=== PATIENT | male | born 1940 | race Caucasian/White ===

== ENCOUNTER 2022-10-22 22:41 | Inpatient (IN) | payer OTHER, MEDICARE ==
[~2022-10-22] VITALS: Ht 180.3 cm; Wt 79.3 kg
[2022-10-22 22:58] LABS: BASOPHILS ABSOLUTE AUTO 0.04 K/mm3 (0.00-0.23); BASOPHILS PERCENT AUTO 0 % (0-2); EOSINOPHILS ABSOLUTE AUTO 0.25 K/mm3 (0.00-0.68); EOSINOPHILS PERCENT AUTO 2 % (0-6); Hematocrit 45.7 % (37.0-53.0); Hemoglobin 14.7 g/dL (13.5-17.5); IMMATURE GRAN ABSOLUTE AUTO 0.06 K/mm3 (0.00-0.10); IMMATURE GRAN PERCENT AUTO 1 % (0-1); LYMPHOCYTES ABSOLUTE AUTO 1.34 K/mm3 (0.84-5.20); LYMPHOCYTES PERCENT AUTO 11 % (21-46); MONOCYTES ABSOLUTE AUTO 1.37 K/mm3 (0.16-1.47); MONOCYTES PERCENT AUTO 11 % (4-13); Mean Corpuscular HGB 30.6 pg (26.0-34.0); Mean Corpuscular HGB Conc 32.2 g/dL (31.5-36.5); Mean Corpuscular Volume 95 fL (80-100); Mean Platelet Volume 10.3 fL (9.1-12.4); NEUTROPHILS ABSOLUTE AUTO 9.68 K/mm3 (1.96-9.15); NEUTROPHILS PERCENT AUTO 76 % (41-73); Platelet Count 141 K/mm3 (150-400); RDW Coefficient Variation 13.5 % (11.7-14.2); RDW Standard Deviation 47.9 fL (35.1-46.3); White Blood Cell Count 12.74 K/mm3 (4.00-11.30)
[2022-10-22 23:15] LABS: Albumin, Blood 2.9 g/dL (3.4-5.0); Albumin/Globulin Ratio 0.8 (0.8-1.8); Bilirubin, Total 1.1 mg/dL (0.1-1.0); Bun/Creatinine Ratio 20.4 (12.0-20.0); Calcium, Blood 8.8 mg/dL (8.5-10.1); Creatinine, Blood 0.88 mg/dL (0.60-1.20); Globulin, Blood 3.7 g/dL (2.2-4.0); Potassium, Blood 4.2 mmol/L (3.5-5.5); Total Protein, Blood 6.6 g/dL (6.4-8.2)
[2022-10-23] VITALS (7 sets, daily range): BP systolic 97–150; BP diastolic 66–96
[2022-10-23 00:09] LABS: Anti-Xa UFH, PHA Monitoring <0.10 IU/mL; International Normalized Ratio 1.27; Prothrombin Time Results 13.2 Sec (9.7-11.5)
[2022-10-23 01:01] LABS: Source, Urine Clean Catch
[2022-10-23 01:06] LABS: Bilirubin, Urine Neg (Neg); Blood, Urine 5+ (Neg); Glucose Qualitative, Urine Neg (Neg); Ketones, Urine 1+ (Neg); Leukocyte Esterase, Urine 1+ (Neg); Nitrite, Urine Neg (Neg); Protein, Urine 4+ (Neg); Urobilinogen, Urine NORM (Normal); pH, Urine 6.5 (5.0-8.0)
[2022-10-23 01:07] LABS: Appearance, Urine Turbid (Clear); Color, Urine Red (P-Yellow)
[2022-10-23 01:12] LABS: Bacteria Rare /hpf; Red Blood Cells, Urine TNTC /hpf (0-2); Squamous Epithelial Cells Rare /hpf (Few)
--- NOTE | 2022-10-23 02:44 | NUR ---
ASSUMED PT CARE FORM RN IN ED. PT AGGITATED WHEN WHEELED INTO ROOM ON [facility], ATTEMPTING TO GET UP STATING "I NEED TO PEE". PT HAS CATHETER IN PLACE DRAINING BRIGHT RED URINE. PT STRANSFERD TO BED. STILL ATTEMPTING TO STAND AND VOID. EDUCATED ON CATHETER BUT PT DOES NOT SEEM TO UNDERSTAND STATING "I DON'T UNDERSTAND WHY YOU WONT LET ME PEE". BLADDER SCANNED FOR > 900 ML IN URINE. ATTEMPTED TO FLUSH BROOKE WITH MINIMAL RESULTS. BROOKE REMOVED, PT STANDING AT BEDSIDE WITH 2 ASSIST, ABLE TO VOID 200 ML BRIGHT RED URINE. PT RETURNED TO BED, NOW RESTING COMFORTABLY WITH EYES CLOSED. HEPRIN GTT STOPPED DUE TO IV SITE IN RIGHT AC, WOUND OVER UPPER LIP, AND BROOKE CATHETER BOTH OOZING BLOOD CONSTANTLY. DR. DOMINGUEZ INFORMED AND ROUNDING ON PT. RECEIVED ORDERS TO DC HEPRIN GTT AT THIS TIME. ALSO RECEIVED ORDER FOR MAG RIDER DUE TO PT HAVING FREQUENT PVC'S, MAG RIDER INFUSING AT THIS TIME. BLEEDING FROM LIP AND IV SIGNIFICANTLY SLOWED SINCE HEPRIN GTT STOPPED, WILL MONITOR. PT ORIENTED TO SELF AND LOCATION, [place]. PLEASANT AND COOPERATIVE AFTER BEING ABLE TO VOID. FOLLOWS DIRECTIONS WITH DIFFICULTY DUE TO DECREASED HEARING AND WEAKNESS NOTED IN BOTH LEFT ARM AND LEFT LEG. CALL LIGHT IN REACH. BED ALARM ON.
[2022-10-23 04:02] LABS: BASOPHILS ABSOLUTE AUTO 0.04 K/mm3 (0.00-0.23); BASOPHILS PERCENT AUTO 0 % (0-2); EOSINOPHILS PERCENT AUTO 1 % (0-6); Hematocrit 42.9 % (37.0-53.0); IMMATURE GRAN ABSOLUTE AUTO 0.06 K/mm3 (0.00-0.10); IMMATURE GRAN PERCENT AUTO 1 % (0-1); LYMPHOCYTES ABSOLUTE AUTO 1.11 K/mm3 (0.84-5.20); LYMPHOCYTES PERCENT AUTO 9 % (21-46); MONOCYTES ABSOLUTE AUTO 1.13 K/mm3 (0.16-1.47); MONOCYTES PERCENT AUTO 9 % (4-13); Mean Corpuscular HGB 30.7 pg (26.0-34.0); Mean Corpuscular HGB Conc 32.6 g/dL (31.5-36.5); Mean Corpuscular Volume 94 fL (80-100); Mean Platelet Volume 10.4 fL (9.1-12.4); NEUTROPHILS ABSOLUTE AUTO 9.88 K/mm3 (1.96-9.15); NEUTROPHILS PERCENT AUTO 80 % (41-73); Platelet Count 133 K/mm3 (150-400); RDW Coefficient Variation 13.4 % (11.7-14.2); RDW Standard Deviation 46.9 fL (35.1-46.3); Red Blood Cell Count 4.56 M/mm3 (4.30-5.90); White Blood Cell Count 12.32 K/mm3 (4.00-11.30)
[2022-10-23 04:18] LABS: Albumin, Blood 2.8 g/dL (3.4-5.0); Albumin/Globulin Ratio 0.8 (0.8-1.8); Bilirubin, Total 1.3 mg/dL (0.1-1.0); Bun/Creatinine Ratio 20.1 (12.0-20.0); Calcium, Blood 8.3 mg/dL (8.5-10.1); Creatinine, Blood 0.7 mg/dL (0.60-1.20); Globulin, Blood 3.3 g/dL (2.2-4.0); Magnesium, Blood 2.7 mg/dL (1.6-2.4); Potassium, Blood 3.6 mmol/L (3.5-5.5); Total Protein, Blood 6.1 g/dL (6.4-8.2)
--- NOTE | 2022-10-23 05:45 | NUR ---
PT BLEEDING FROM WOUND AND IV SITE HAS SLOWED BUT NOT STOPPED. CONTINUES TO VOID BRIGHT RED BLOOD BUT IS ABLE TO VOID IN URINAL, DOES NOT APPEAR UNCOMFORTABLE BEFORE. WILL CONTINUE TO MONITOR. ABLE TO TAKE PO MEDS WITH SMALL SIPS OF WATER WITHOUT ANY COUGHING OR CHOAKING. CLEARS THIN LIQUIDS WELL. HR REMAINS SR WITH MULTIPLE PVC'S AND FREQUENT RUNS OF V-TACH. DR. DOMINGUEZ IS AWARE.
--- NOTE | 2022-10-23 09:40 | NUR ---
AM NOTE: THIS RN ASSUMED CARE FROM LIVIA RN. PATIENT TRYING TO GET OUT OF BED DURING BEDSIDE SHIFT REPORT AND AGGITATED WITH LINES AND CORDS. PATIENT ABLE TO TELL ME NAME, , YEAR, WHERE HE IS AND WHY HE IS HERE. INTERMIT CONFUSION AND AT TIMES PATIENT TAKING LONGER TO RESPOND. SPEECH CLEAR. SLIGHTLY HARD OF HEARING. LEFT CHEEK/LIP LACERATION WITH STICHES IN PLACE, MAKING IT VERY DIFFICULT TO TELL IF PATIENT IS HAVING LEFT SIDED FACIAL DROOP. PATIENT ABLE TO STICK OUT TONGUE, MOVE IT FROM SIDE TO SIDE, RAISE EYEBROWS AND PUFF OUT BOTH CHEEKS WITH NO ISSUES. PUPILS ARE EQUAL AND SLUGGISH TO REACT. MISSING TEETH, ONE TOOTH ON BOTTOM IS SLIGHTLY LOOSE. PATIENT FOLLOWING COMMANDS WITH RIGHT UPPER AND LOWER EXTREMITY. AT TIMES MOVING LEFT UPPER AND LOWER LEG BUT NOT FOLLOWING COMMANDS ON LEFT SIDE. UNABLE TO SQUEEZE LEFT HAND. UNABLE TO SENSE THIS RN TOUCHING LEFT ARM/LEG. SENSATION PRESENT THROUGHOUT ENTIRE FACE. PATIENT NEGLECTING TO LOOK TO THE LEFT. NOT RECOGNIZING THIS RN'S HANDS OR FINGERS WHEN ASKED "HOW MANY" ON THE LEFT SIDE. ON ROOM AIR, LUNGS SOUNDING CLEAR. EVEN AND UNLABORDED BREATHS. NO COUGH OR SOB NOTED. PATIENT ABLE TO COUGH ON COMMAND. RR 16-20. TELE SHOWING SR WITH MULTIPLE AND FREQUENT PVC'S. HR 80-90'S. DENIES CHEST PAIN/PRESSURE/PALPITATIONS. BP STABLE. NO SIGNS OF EDEMA. BLEEDING NOTED AROUND BOTH IV SITES AND FROM URETHRA. CARDIOLOGY CONSULT CANCELED PER DR. LEE. ECHO ORDERS IN PLACE. DENIES ABDOMINAL PAIN/NAUSEA. NPO AT THIS TIME. NO TENDERNESS WITH PALPATION. ATTENDS IN PLACE. PATIENT URINATING SMALL/FREQUENT AMOUNTS OF BRIGHT RED BLOOD. PATIENT DENIES PAIN WHEN URINATING. PATIENT STATES HE DOES NOT NORMALLY PEE ANY BLOOD. IN ADDITION TO LEFT CHEEK/LIP LACERATION WITH STICHES, PATIENT HAS HEMATOMA AND ABRASION TO LEFT FOREHEAD. THIS RN SPOKE WITH DR. LEE ON PHONE THIS MORNING REGARDING NEURO CONCERNS, BLEEDING WHEN URINATING AND PATIENT PRESENTATION DESCRIBED IN THIS NOTE. DR. LEE TO PLACE LAB ORDERS. PLAN TO DC CARDIOLOGY. DR. LEE MED STUDENTS TO BEDSIDE TO EVAL PATIENT.
[2022-10-23 11:12] LABS: Hematocrit 44.2 % (37.0-53.0); Hemoglobin 14.4 g/dL (13.5-17.5)
--- NOTE | 2022-10-23 11:13 | NUR ---
THIS RN PLACED CALL TO DR. LEE. THIS RN CONCERNED WITH PATIENT HAVING TROUBLE URINATING AND WHEN HE DOES URINATE IT BEING BRIGHT RED BAKARI BLOOD AND ONLY 50-100ML AT A TIME. THIS RN DISCUSSED/ ASKED QUESTIONS OF NEED FOR POSSIBLE BROOKE OR CONTINUOUS BLADDER IRRIGATION. ORDERS FOR RENAL ULTRASOUND. THIS RN ALSO DISCUSSED/QUESTIONED MRI BEING DONE TODAY WITH CONCERNS FOR LEFT SIDE NEGLECT. PLAN FOR MRI TO BE DONE TOMORROW AT THIS TIME. PATIENT UNABLE TO COMPLETE ECHO TO NOT BEING ABLE TO LAY STILL. SPEECH THERAPY ORDERS PLACED. CAMERA AND BED ALARM REMAIN IN PLACE. DR. LEE WANTING MRI DONE TOMORROW 10/24.
--- NOTE | 2022-10-23 12:40 | NUR ---
PATIENT TRYING TO GET OUT OF BED. THIS RN AND SECOND RN TO BEDSIDE TO ASSIST PATIENT. PATIENT ASKS RN IF SHE IS A DOCTOR AND STATES HE WANTS US TO KNOW THE WHOLE STORY. PATIENT STATES "I HAD A STROKE A WEEK AGO". HE DESCRIBES WORKING ON HIS ROOF AND FEELING HIS LEFT SIDE BECOME PARALIZED AND STRUGGLING TO USE HIS RIGHT SIDE. HE STATES HE DID NOT TELL ANYONE OR GO TO SEE A DOCTOR. HE STATES HIS SPEECH WAS NOT AFFECTED. FAMILY TO BEDSIDE AND THIS RN UPDATED ON PLAN OF CARE AND PATIENT CONDITION. RENAL ULTRASOUND BEING DONE AT THIS TIME. AFTERNOON VITALS STABLE. NO CHANGES TO NEURO ASSESSMENT SEE PRIOR NOTE. PATIENT CONTINUES TO NEGELECT LOOKING LEFT OR USING LEFT SIDE WHEN ASKED TO COMPLETE COMMANDS. PATIENT ABLE TO STAND AT BEDSIDE WITH THIS RN AND LIVING ADVISOR AND URINATE 150 OF BAKARI RED BLOOD. PATIENT USES LEFT HAND TO PUSH OFF BED BUT NOT ABLE TO SQUEEZE THIS RN'S OR COMPLETE ANY OTHER COMMANDS. CONTINUES TO DENY PAIN THROUGHOUT. ASKING FOR WATER. SPEECH THERAPY ORDERS IN PLACE. USING SUCTION SWABS TO MOISTEN MOUTH. Q4 ORAL CARE. Q6 CBG.
--- NOTE | 2022-10-23 15:03 | NUR ---
DR. LEE BY TO SEE PATIENT. ORDERS FOR MRI. THIS RN PRESENT FOR DR. LEE ASSESSMENT. PATIENT PRESENTS WITH SAME SYMPTOMS MENTIONED IN PRIOR NOTES WITH THE ADDITION OF A RIGHT HAND "PILL ROLLING" TREMOR, PER DR. LEE. PLAN TO CONTINUE TO MONITOR URINE OUTPUT, NO INTERVENTIONS AT THIS TIME.
--- NOTE | 2022-10-23 16:56 | NUR ---
PATIENT MUCH MORE AGGITATED, PULLING AT LINES AND CORDS. TRYING TO GET OUT OF BED. CONFUSED AND SAYING HE IS AT HOME. NONSENSICAL STATEMENTS. MOVING LEFT LEG KICKING IN BED. CONTINUES TO HAVE LEFT SIDED FACIAL DROOP. AND NOT ABLE TO FOLLOW COMMANDS ON LEFT SIDE SUCH SQUEEZING MY HAND OR LOOKING TO THE LEFT. DR. LEE NOTIFIED AND IN TO SEE PATIENT. SEE EMAR FOR PRN MEDICATIONS. SEROQUEL GIVEN WITH NO ISSUES. PLAN FOR 5MG PO VALIUM 15 MIN PRIOR TO MRI. CALL PLACED TO KRYS TO UPDATE. NO ANSWER. CALL PLACED TO SON AMAYA. UPDATE GIVEN.
--- NOTE | 2022-10-23 17:13 | NUR ---
25 MG OF PO SEROQUEL GIVEN PER DR. LEE. ORDERS TO GIVE ADDITIONAL 25MG IN 30 MIN IF PATIENT IS STILL AGGITATED. PATIENT SITTING UP IN BED AND SLIGHTLY MORE COMFORTABLE. MARSHMALLOW MAKER OR THIS RN HAVING TO STAY AT BEDSIDE.
--- NOTE | 2022-10-23 18:10 | NUR ---
MRI ON WAY TO FROZEN PIE MAKER PATIENT. PATIENT RESTING SOUNDLY AT THIS TIME. 1:1 SITTER IN ROOM.
--- NOTE | 2022-10-23 20:05 | NUR ---
ASSUMED PT CARE FROM DENISE RN ON . PT RESTING IN BED WITH EYES CLOSED. APPEARS TO BE SLEEPING BUT RESPONDS TO TOUCH BY PUSHING HANDS AWAY AND RESISTING INTERACTION, ABLE TO CONSOLE SLIGHTLY WITH VOISE. RESPIRATIONS EVEN AND UNLABORED WITH O2 SATS 97% ON RA. IV ATIVAN GIVEN PRIOR TO PT LEAVING FOR SECOND ATTEMPT AT MRI, FIRST ATTEMPT UNSUCCESSFUL DUE TO PT BECOMING AGGITATED. PT OFF FLOOR AT THIS TIME.
[2022-10-24] VITALS (7 sets, daily range): BP systolic 116–145; BP diastolic 48–91
--- NOTE | 2022-10-24 06:09 | NUR ---
SHIFT SUMMARY: PT WAS ABLE TO HAVE MRI COMPLETED, RESULTS PENDING STILL. PT HAS SLEPT THROUGHOUT THIS SHIFT. RESPONDS TO TOUCH BY PUSHING HANDS AWAY BUT IS NOT RESPONSIVE TO VERBAL STIMULI AT THIS TIME. RESPIRATIONS HAVE REMAINED EVEN AND UNLABORED. O2 SATS 97% ON RA. HR SR WITH PVC'S. FREQUENCY OF PVC'S DECREASED THROUGHOUT SHIFT. NO V-TACH NOTED DURING THIS SHIFT. NO ATTEMPTS TO GET OUT OF BED DURING THIS SHIFT. PT HAD EXTRA LARGE INCOTINENT VOID THAT APPEARD TO BE CLEAR YELLOW IN HIS BRIEF, NO BLOOD NOTED. CALL LIGHT IN REACH. CAMERA IN ROOM FOR PT SAFETLY.
--- NOTE | 2022-10-24 10:03 | NUR ---
AM NOTE: PATIENT VERY LETHERGIC, DROWSY AND HARD TO WAKE. WAKES TO PAINFUL STIMULI AND OCCASIONALLY VERBAL. OPENING EYES UPON TURNING IN BED AND STATES HIS SHOULDER HURTS. ABLE TO TELL ME NAME AND . STATES HE IS IN [place] AT HOME. LEFT FACIAL DROOP AND SPEECH MUMBLED. AT TIMES PATIENT HAVING HARD TIMES CLEARING SECRETIONS. SUCTION AT BEDSIDE. ABLE TO COUGH ON DEMAND. PUPILS EQUAL AND SLUGGISH TO REACT. LEFT SIDE REMAINS IMPAIRED. LEFT UPPER AND LOWER EXTREMITY MORE FLACCID AND LESS MOVEMENT THIS AM COMPARED TO YESTERDAY DAY SHIFT. COMPLAINS OF "RIGHT SHOULDER PAIN" BUT POINTS TO LEFT SHOUDLER WITH RIGHT HAND. NOT ABLE TO STAY AWAKE LONG ENOUGH TO PARTICIPATE IN OTHER COMPONENTS OF NEURO ASSESSMENT. TELE SHOWING SR WITH HR 70-80'S WITH LESS FREQUENT PVC'S COMPARED TO YESTERDAY DAY SHIFT. BP STABLE. PPP. NO SIGNS OF EDEMA. ON ROOM AIR SATING MID-HIGH 90'S. LUNGS SOUNDING CLEAR IN UPPER LOBES AND DIMINISHED IN LOWER LOBES. PATIENT IS HAVING THICK/BROWN/YELLOW/FOWL SMELLING SPUTUM. SUCTIONING FREQUENTLY THIS AM. WET/HARSH/MOIST SOUNDING COUGH. BOWEL TONES PRESENT. REMAINS NPO AT THIS TIME. SPEECH THERAPY CONSULT IN PLACE. Q4 ORAL CARE AND NEEDED. Q6 BLOOD SUGARS. BLOOD SUGAR THIS AM 88. SON, DAUGHTER AND MOM IN THIS AM. UPDATED BY THIS RN. DR. LEE MED STUDENTS IN TO ASSESS PATIENT.
--- NOTE | 2022-10-24 10:44 | NUR ---
UPON Q2 TURNING PATIENT OPENS EYES. THIS RN ASKED IF PATIENT IS IN ANY PAIN, PATIENT STATES NO. THIS RN ASKED IF PATIENT WAS COMFORTABLE AND PATIENT STATES YES. PATIENT FALLS ASLEEP QUICKLY AFTER WAKING.
--- NOTE | 2022-10-24 11:00 | NUR ---
DR. LEE BY. PLAN TO PLACE PATIENT ON D5 1/2 NS AT 75 ML/HR. ORDER FOR CBC AND CHEM PANEL TO BE DRAWN NOW, CTA OF HEAD AND NECK TO BE DONE, BLADDER SCAN PRN, SPUTUM SAMPLE, 1MG IV ATIVAN Q4 PRN FOR AGITATION. ORDERS IN PLACE.
[2022-10-24 11:32] LABS: BASOPHILS ABSOLUTE AUTO 0.04 K/mm3 (0.00-0.23); BASOPHILS PERCENT AUTO 0 % (0-2); EOSINOPHILS ABSOLUTE AUTO 0.13 K/mm3 (0.00-0.68); EOSINOPHILS PERCENT AUTO 1 % (0-6); Hematocrit 42.7 % (37.0-53.0); Hemoglobin 13.9 g/dL (13.5-17.5); IMMATURE GRAN ABSOLUTE AUTO 0.08 K/mm3 (0.00-0.10); IMMATURE GRAN PERCENT AUTO 1 % (0-1); LYMPHOCYTES PERCENT AUTO 7 % (21-46); MONOCYTES ABSOLUTE AUTO 1.38 K/mm3 (0.16-1.47); MONOCYTES PERCENT AUTO 9 % (4-13); Mean Corpuscular HGB 30.5 pg (26.0-34.0); Mean Corpuscular HGB Conc 32.6 g/dL (31.5-36.5); Mean Corpuscular Volume 94 fL (80-100); Mean Platelet Volume 10.4 fL (9.1-12.4); NEUTROPHILS ABSOLUTE AUTO 12.11 K/mm3 (1.96-9.15); NEUTROPHILS PERCENT AUTO 82 % (41-73); Platelet Count 150 K/mm3 (150-400); RDW Coefficient Variation 13.6 % (11.7-14.2); RDW Standard Deviation 47.4 fL (35.1-46.3); Red Blood Cell Count 4.55 M/mm3 (4.30-5.90); White Blood Cell Count 14.74 K/mm3 (4.00-11.30)
[2022-10-24 11:56] LABS: Albumin, Blood 2.6 g/dL (3.4-5.0); Albumin/Globulin Ratio 0.8 (0.8-1.8); Bilirubin, Total 1.6 mg/dL (0.1-1.0); Bun/Creatinine Ratio 29.1 (12.0-20.0); Calcium, Blood 8.3 mg/dL (8.5-10.1); Creatinine, Blood 0.69 mg/dL (0.60-1.20); Globulin, Blood 3.4 g/dL (2.2-4.0)
--- NOTE | 2022-10-24 12:50 | NUR ---
PATIENT BACK FROM CTA OF HEAD AND NECK
--- NOTE | 2022-10-24 14:39 | NUR ---
SON (AMAYA) DAUGHTER (EM) AND (KRYS) AT BEDSIDE VISITING. THIS RN PROVIDED UPDATE TO FAMILY. DR. LEE TO SPEAK WITH FAMILY ON DETAILS. THIS RN OFFERED SUPPORT WITH THERAPUETIC LISTENING. THIS RN ENCOURAGED FAMILY TO CONSIDER GOALS OF CARE FOR THEIR FATHER/. FAMILY IS OPEN TO CONTINUED CONVERSATIONS.
--- NOTE | 2022-10-24 18:06 | NUR ---
SHIFT SUMMARY: NO ACUTE CHANGES. VITAL SIGNS REMAIN STABLE. ELEVATED TEMP AROUND 99.6. TMAX THIS SHIFT 100.3. SHEET AND FAN PLACED ON PATIENT FOR COMFORT. PATIENT REMAINS CALM AND COOPERATIVE THROUGHOUT SHIFT. SEE AM NOTE FOR INFORMATION ABOUT PRESENTATION. PATIENT OCCASSIONALLY OPENS EYES AND ABLE TO COMMUNICATE NEEDS WHEN ASKED CLEAR YES AND NO QUESTIONS. ABLE TO SHAKE HIS HEAD YES AND NO. LEFT FACIAL DROOP AND LIMITED ROM ON LEFT SIDE. Q2 TURNING. Q4 ORAL CARE. Q6 BLOOD SUGARS. D5 1/2 NS INFUSING PER EMAR. ABX GIVEN. NO TELE EVENTS. REMAIN SR WITH PVC'S. REMAINS ON ROOM AIR. SPUTUM SAMPLE SENT TO LAB. CONTINUES TO HAVE HARSH WET COUGH. SUCTIONING NEEDED, SUCTIONING HAS SLOWED SINCE THIS AM. SPUTUM REMAINS FOWL SMELLING. URINE REMAINS BLOODY. PATIENT CONTINUES TO DENY PAIN WHEN URINATING. INCONTINENT IN ATTENDS. BLADDER SCANNING FREQUENTLY. NO GREATER THAN 286 IN BLADDER THIS SHIFT. SMALL BLOOD CLOTS NOTED IN ATTENDS. DR. LEE BACK ON FLOOR, THIS RN UPDATED ON CONVERSATION I HAD WITH PATIENTS FAMILY ABOUT STROKE AND PATIENT PRESENTATION. DR. LEE PLANS FOR CONVERSATION TOMORROW WITH FAMILY. CAMERA IN PLACE WELL BED ALARM. PATIENT HAS HAD 0 ATTEMPTS AT TRYING TO GET OUT OF BED THIS SHIFT.
--- NOTE | 2022-10-24 19:53 | NUR ---
ASSSUMED PT CARE FROM DENISE HERNANDEZ ON . PT RESTING IN BED WITH EYES CLOSED. OPENS EYES SLIGHTLY WHEN GREETED VERBALLY, RESPONDS TO QUESTIONS BUT IS [place]. A&OX2, PLEASANT AND COOPERATIVE AT THIS TIME. CHANGED DUE TO INCONTINENT VOID OR BLOOD TINGED URINE. BLADDER SCANNED FOR 332 ML, DENIES FEELING THE NEED TO VOID AT THIS TIME, WILL MONITOR. DENIES ANY DISCOMFORT AT THIS TIME. HR IS SR WITH PVC'S IN THE 90'S. O2 SATS 97% ON RA. PT HAS LOOSE COUGH, EXPELLS THICK, YELLOW SPUTUM WHEN ENCOURAGED. LUNG SOUNDS COURSE THROUGHOUT, WILL MONITOR. LEFT SIDE NOTED TO BE VERY WHEAK, UNABLE TO SQUEEZE WITH LEFT HAND, AND ONLY MINIMAL MOVEMENT NOTED WITH LEFT FOOT. LEFT FACIAL DROOP NOTED AT WELL. WILL MONITOR. CALL LIGHT IN REACH, BED ALARM ON. NISHA IN ROOM FOR PT SAFETY.
--- NOTE | 2022-10-24 23:37 | NUR ---
INCREASED PVC'S NOTED THIS EVENING. DR. EUGENE CALLED, RECEIVED ORDERS FOR RETESTING ELECTROLYTES. WILL MONITOR. PT APPEARS ASYMPTOMATIC AT THIS TIME BUT DIFFICULT TO ASSESS DUE TO DECREASED MENTATION. WILL MONITOR. DOES NOT APPEAR IN ANY DISTRESS. CALL LIGHT IN REACH. BED ALARM ON. NISHA IN ROOM FOR SAFETY.
[2022-10-24 23:44] LABS: Phosphorus, Blood 2.7 mg/dL (2.5-4.9); Potassium, Blood 4.1 mmol/L (3.5-5.5)
[2022-10-25] VITALS (7 sets, daily range): BP systolic 113–148; BP diastolic 68–98
--- NOTE | 2022-10-25 05:37 | NUR ---
PT CONTINUES TO BE DROWSY THROUGHOUT THE NIGHT BUT WAKES TO NOISE. DOES NOT FOLLOW DIRECTIONS WELL. ABLE TO COMMUNICATE SIMPLE NEEDS. FREQUENT INCONTINENT VOIDS WITH BLOOD TINGED URINE. BLADDER SCANNED Q 3-4 HOURS, RESULTS UNDER BLADDER MANAGMEENT. REPOSITIONED OFF OF BACK FREQUENTLY, PT RESISTANT TO BE MOVED. HR REMAINS SR WITH PVC'S. O2 SATS > 92% ON RA. CALL LIGHT IN REACH. BED ALARM ON. CAMERON IN ROOM FOR SAFETY.
--- NOTE | 2022-10-25 17:19 | NUR ---
HIFT SUMMARY PT IS A&OX4 BUT HAS BEEN DROWSY THIS SHIFT. HE WORKED WITH PT/OT/ST THIS AM. HE IS NOW ON A PUREE DIET, W/ NECTAR THICK LIQUIDS, AND NEEDS ASSISTANCE TO EAT. THE PT C/O LEFT SHOULDER PAIN WHEN ROLLED ONTO THAT SIDE A 2V XR WAS ORDERED FOR BOTH SHOULDERS, NO FRACTURES NOTED. FAMILY HAS BEEN AT BEDSIDE FOR HALF OF THE SHIFT AND THEY WERE UPDATED ON THE PT'S STATUS. HE IS ON ROOM AIR AND HAS NO COMPLAINTS OF SOB. HE DOES PRODUCE COPIOUS AMOUNTS OF THICK SPUTUM, AND IS ABLE TO COUGH IT UP. ON TELE HE IS ON SR W/ PVC'S AND PAC'S, HR 60'S -100'S; HE DENIES ANGINA. PT HAS BEEN INC AND A Q2 TURN. BED IS IN LOW, CALL LIGHT IN REACH, AND VIRTUAL DATA CENTER ENGINEER IN THE ROOM. SEE NOTES FOR ANY UPDATES.
--- NOTE | 2022-10-25 17:20 | NUR ---
DR. ESPAÑA WANTS TO HAVE A FAMILY MEETING W/ PALLITIVE CARE TOMORROW. HE CALLED FAMILY BUT WAS UNABLE TO REACH THEM.
--- NOTE | 2022-10-25 17:41 | NUR ---
TALKED TO PALLIATIVE CARE PT EXPRESSED HE DOES NOT WANT TO HAVE HIS DAUGHTER EM IN THE FAMILY MEETING TOMORROW W/ THE DR AND PALLIATIVE. PT STATED HE DOES WANT HIS DAUGHTER TO "FRAK OUT". HE FOR SURE WANTS HIS AND SON. PALLIATIVE NOTIFIED OF REQUEST AND TOLD THAT WE WERE NOT ABLE TO REACH FAMILY YET. KOKO FROM PALLIATIVE STATED SHE WILL REACH OUT TO FAMILY.
--- NOTE | 2022-10-25 17:52 | NUR ---
Meeting set for 10am tomorrow, 10/26 with pt's family, Dr. Portillo and palliative care.
--- NOTE | 2022-10-25 19:55 | NUR ---
ASSUMED PT CARE FROM BATSHEVA HERNANDEZ ON DAY . PT IS A&OX4, ABLE TO ANSWERS DIRECT QUESTIONS APPROPRIATELY. FOLLOWS COMMANDS WITH DIFFICULTY, STRUGGLES WITH MAKING NEEDS KNOWN. DENIES ANY PAIN, SOB, OR NAUSEA AT THIS TIME. HR IS SR WITH PVC'S IN THE 90'S. BP STABLE. O2 SATS 96% ON RA. ABLE TO COUGH AND CLEAR AIRWAY WHEN DIRECTED TO. DOES NOT APPEAR IN ANY DISTRESS. PT TURNS HEAD TO LEFT WITH DIFFICULTY, UNABLE TO TELL ME WHAT HE SEE OUT OF HIS LEFT EYE. LEFT ARM FLACCID, UNABLE TO FEEL TOUCH. UNABLE TO FEEL TOUCH IN LEFT LEG UP UNTIL THIGH AREA BUT INVOLUNTARY MOVEMENT PRESENT WHEN FOOT IS TOUCHED, KICKING OUT AND JERKING. DENIES NEEDS AT THIS TIME. CALL LIGHT IN REACH. BED ALARM ON.
[2022-10-26 00:40] VITALS: BP 126/85
[2022-10-26 04:01] LABS: BASOPHILS ABSOLUTE AUTO 0.03 K/mm3 (0.00-0.23); BASOPHILS PERCENT AUTO 0 % (0-2); EOSINOPHILS ABSOLUTE AUTO 0.18 K/mm3 (0.00-0.68); EOSINOPHILS PERCENT AUTO 1 % (0-6); Hematocrit 42.2 % (37.0-53.0); Hemoglobin 13.9 g/dL (13.5-17.5); IMMATURE GRAN ABSOLUTE AUTO 0.06 K/mm3 (0.00-0.10); IMMATURE GRAN PERCENT AUTO 1 % (0-1); LYMPHOCYTES PERCENT AUTO 10 % (21-46); MONOCYTES ABSOLUTE AUTO 1.25 K/mm3 (0.16-1.47); MONOCYTES PERCENT AUTO 10 % (4-13); Mean Corpuscular HGB 30.3 pg (26.0-34.0); Mean Corpuscular HGB Conc 32.9 g/dL (31.5-36.5); Mean Corpuscular Volume 92 fL (80-100); Mean Platelet Volume 10.2 fL (9.1-12.4); NEUTROPHILS ABSOLUTE AUTO 9.73 K/mm3 (1.96-9.15); NEUTROPHILS PERCENT AUTO 78 % (41-73); Platelet Count 138 K/mm3 (150-400); RDW Coefficient Variation 13.3 % (11.7-14.2); RDW Standard Deviation 45.4 fL (35.1-46.3); Red Blood Cell Count 4.59 M/mm3 (4.30-5.90); White Blood Cell Count 12.45 K/mm3 (4.00-11.30)
[2022-10-26 04:18] VITALS: BP 119/58
[2022-10-26 04:21] LABS: International Normalized Ratio 1.41; Prothrombin Time Results 14.5 Sec (9.7-11.5)
[2022-10-26 04:23] LABS: Albumin, Blood 2.4 g/dL (3.4-5.0); Albumin/Globulin Ratio 0.7 (0.8-1.8); Bilirubin, Total 1.8 mg/dL (0.1-1.0); Bun/Creatinine Ratio 26.5 (12.0-20.0); Calcium, Blood 8.2 mg/dL (8.5-10.1); Creatinine, Blood 0.79 mg/dL (0.60-1.20); Globulin, Blood 3.4 g/dL (2.2-4.0); Magnesium, Blood 2.2 mg/dL (1.6-2.4); Phosphorus, Blood 2.8 mg/dL (2.5-4.9); Potassium, Blood 3.9 mmol/L (3.5-5.5); Total Protein, Blood 5.8 g/dL (6.4-8.2)
--- NOTE | 2022-10-26 06:51 | NUR ---
SHIFT SUMMARY: PT SLEPT MAJORITY OF NIGHT. OCCASIONALLY UP TO BSC TO VOID. DENIES ANY SOB OR CHEST PAIN. DENIES PAIN IN LEFT LEG. HR REMAINS A-FIB 90'S-100'S WHEN AT REST. INTO THE 110-120'S WEHN UP. NO ACUTE CHANGES NOTED DURING THIS SHIFT. CALL LIGHT IN REACH. BED ALARM ON.
[2022-10-26 07:32] VITALS: BP 136/85
--- NOTE | 2022-10-26 11:29 | NUR ---
Met with Dr. Portillo and pt's son Ashish this morning in pt's room, while the pt appeared to be sleeping. Dr. Portillo and son discussed options, and at this point, given the extensive issues, Ashish states he prefers to take the pt home with hospice to give him some quality time with the time he has left. Afterwards, Ashish and I discussed logistics, and Ashish is planning to take both his mom and dad home to his house, as mom is legally blind, and the pt has been her primary CG until recently when he became incapacitated. Ashish does not have a preference for hospice agency, so passed the information to JANE Grey. Pt is now on comfort care, pending home with hospice.
--- NOTE | 2022-10-26 14:55 | NUR ---
Received pt to medical unit. Verbally aroused, falls right back to sleep. Able to make needs known. Denies pain. Resp even nonlabored on RA. Daily hygiene and oral care provided. Pt states uncomfortable on left side. Repositioned for comfort. No family at bedside. Will continue to monitor.
--- NOTE | 2022-10-26 18:47 | NUR ---
SHIFT SUMMARY: Pt remains calm, aroused to verbal stimuli. Slow to respond, able to verbalized needs. No pain upon assessment, denies when asked. Sitting up in bed being fed pureed diet without difficulty. Good appetite. Voided X1 per brief dark yellow in color. No further needs id or verbalized at this time.
[2022-10-27 03:10] LABS: HSV-1 DNA Negative (Negative); HSV-2 DNA Negative (Negative)
--- NOTE | 2022-10-27 04:59 | NUR ---
SUMMARY: PT REMAINS ON COMFORT CARE BUT DENIES COMPLAINTS OR NEED FOR PAIN/PRN MEDS. HE'S A/O TO SELF, FAMILY AND SURROUNDINGS AND SPECIFIES NEEDS WHEN STAFF IN ROOM. BED ALARM ON FOR FALL RISK AND DECONDITIONING. R.EXT'S STRENGTH AND MOBILITY IS INTACT AND HE CAN GRADULLAY REPOSITION SELF BUT TURN SCHEDULE WAS MAINTAINED D/T L.ARM FLACCIDITY AND L.LEG WEAKNESS. PILLOWS PLACED FOR SBD PREVENTION AND ATTENDS CHANGED PRN FOR URINARY INCONTINENCE. HE HAD FALL PRIOR TO ADMISSION AND HAS SCATTERED BRUISES, L.UPPER LIP STITCHES, L.SCALP LAC W/SCABBING AND L.ELBOW MEPILEX THAT REMAINS C/D/I. NO ACUTE CHANGES. PLAN FOR D/C TODAY HOME W/HOSPICE. WCLUISANA AND REPORT TO DAY RN.
[2022-10-27 07:35] VITALS: BP 143/90
--- NOTE | 2022-10-27 11:23 | NUR ---
DISCHARGE HOME PT DISCHARGED VIA [facility] TO HOME WITH HOSPICE. PT CLEAN AND DRY. IV X2 REMOVED. BELONGINGS INCLUDING GLASSES SENT WITH EMS CREW. TRANSFERED TO [facility] WITH 4 ASSIST AND SLIDER SHEET. PT TOLERATED WELL. CONTINUE POC.
== END 2022-10-27 11:25 | disposition hospice, home (50) | DRG 64 ==
LOC: ER 22:41 → MEDS 10-23 01:18 → PCU 10-23 01:18 → MEDS 10-26 13:21 → ENPENDDIS 10-27 10:12 → MEDS 10-27 11:25
PROVIDERS: Emergency Medicine; Family Medicine; Internal Medicine; ADMIT Student in an Organized Health Care Education/Training Program
PROC: 0T9B70Z Drainage of Bladder with Drainage Device, Via Natural or Artificial Opening (ICD-10-PCS; principal; 2022-10-23)
PROC: 0CQ0XZZ Repair Upper Lip, External Approach (ICD-10-PCS; 2022-10-23)
DX: I63.511 Cerebral infarction due to unspecified occlusion or stenosis of right middle cerebral artery (principal); I21.A1 Myocardial infarction type 2; G81.94 Hemiplegia, unspecified affecting left nondominant side; G93.40 Encephalopathy, unspecified; I50.20 Unspecified systolic (congestive) heart failure; I49.3 Ventricular premature depolarization; Z51.5 Encounter for palliative care; S01.511A Laceration without foreign body of lip, initial encounter; R77.8 Other specified abnormalities of plasma proteins; N32.89 Other specified disorders of bladder; R16.0 Hepatomegaly, not elsewhere classified; N40.0 Benign prostatic hyperplasia without lower urinary tract symptoms; M06.869 Other specified rheumatoid arthritis, unspecified knee; E16.2 Hypoglycemia, unspecified; K76.89 Other specified diseases of liver; R91.1 Solitary pulmonary nodule; I73.9 Peripheral vascular disease, unspecified; D69.6 Thrombocytopenia, unspecified; E55.9 Vitamin D deficiency, unspecified; N32.0 Bladder-neck obstruction; L21.9 Seborrheic dermatitis, unspecified; C44.92 Squamous cell carcinoma of skin, unspecified; C44.91 Basal cell carcinoma of skin, unspecified; W01.198A Fall on same level from slipping, tripping and stumbling with subsequent striking against other object, initial encounter; Y92.009 Unspecified place in unspecified non-institutional (private) residence as the place of occurrence of the external cause
CPT/HCPCS: 12013; 36415; 51702; 51798; 70450; 70496; 70498; 72125; 73030; 76770; 80053; 81001; 82105; 82330; 82947; 83735; 84100; 84132; 84484; 85014; 85018; 85025; 85520; 85610; 87040; 87070; 87077; 87186; 87205; 87529; 92610; 93005; 93010; 93306; 96361-59; 96365-59; 97112; 97162; 97166; 97530; 99285-25; A9270; C9113; G0103; J0290; J0696; J1644; J2060; J3370; J3475; J7030; J7042; J7050; Q9967